=== PATIENT | female | born 1960 ===

== ENCOUNTER → 2018-12-26 | Outpatient (REF) | payer BC | LOC: M LAB LCGH 13:05 | PROVIDERS: ATTEND Physician Assistant | DX: L57.0 Actinic keratosis (principal) ==

== ENCOUNTER → 2024-11-11 | Outpatient (CLI) | LOC: M SOG 07:54 | PROVIDERS: ATTEND Physician Assistant | DX: M79.642 Pain in left hand (principal); M19.042 Primary osteoarthritis, left hand ==